=== PATIENT | female | born 1945 | race Caucasian/White ===

== ENCOUNTER 2019-07-27 10:04 | Inpatient (IN) | payer MEDICARE, OTHER ==
[~2019-07-27] VITALS: Ht 154.9 cm; Wt 47.6 kg
[2019-07-27] MEDS ORDERED: ASPI81TA85 PO (10:23)
[2019-07-27] MEDS ORDERED: CITRTAB18 PO (10:23)
[2019-07-27] MEDS ORDERED: LEVO50TA5 PO (10:23)
[2019-07-27] MEDS ORDERED: LIPI10TA PO (10:23)
[2019-07-27] MEDS ORDERED: CENT1TAB PO (10:23)
[2019-07-27] MEDS ORDERED: CELE1CAP4 PO (10:23)
[2019-07-27] MEDS ORDERED: OMEP40CA2 PO (10:23)
[2019-07-27] MEDS ORDERED: diphenhydrAMINE INJ 50MG/ML VIAL (J1200) IV STA (10:53)
[2019-07-27] MEDS ORDERED: NS 1,000 ML IV ONE (11:00)
--- NOTE | 2019-07-27 11:19 | REP ---
Clinical: Chest and abdominal pain. Technique: PA and lateral. Comparison: None. Findings: Scoliosis appreciated along with chronic-appearing interstitial changes. Small right lower lobe infiltrate/atelectasis and small pleural effusion identified. Left hemithorax appears relatively well aerated and clear. Cardiac silhouette is normal. Impression: Subtle right basilar atelectasis/infiltrate and small pleural effusion. Electronically Signed by Kyle Dash MD 07/27/2019 11:10 A
[2019-07-27 11:20] LABS: BASO % 0.2 % (0.0-1.0); EOS # 0.1 10^3/uL (0.0-0.5); EOS % 0.5 % (0.0-3.0); HEMATOCRIT 38.2 % (36.0-47.0); HEMOGLOBIN 12.9 g/dl (12.0-15.5); LYMPH # 0.7 10^3/uL (1.5-5.0); LYMPH % 4.6 % (24.0-44.0); MEAN CORPUSCULAR HEMOGLOBIN 31.3 pg (27.0-33.0); MEAN CORPUSCULAR HGB CONC 33.8 g/dl (32.0-36.5); MEAN CORPUSCULAR VOLUME 92.7 fl (80.0-96.0); MONO # 1.5 10^3/uL (0.0-0.8); MONO % 9.6 % (0.0-5.0); NEUTROPHILS # 13.5 10^3/uL (1.5-8.5); NEUTROPHILS % 84.7 % (36.0-66.0); PLATELET COUNT, AUTOMATED 208 10^3/uL (150-450); RED BLOOD COUNT 4.12 10^6/uL (4.00-5.40)
[2019-07-27 11:47] LABS: ALBUMIN 3.7 GM/DL (3.2-5.2); ALT/SGPT 21 U/L (12-78); BILIRUBIN,DIRECT 0.2 MG/DL (0.0-0.2); BILIRUBIN,TOTAL 0.6 MG/DL (0.2-1.0); BLOOD UREA NITROGEN 14 MG/DL (7-18); CALCIUM LEVEL 9.5 MG/DL (8.8-10.2); CARBON DIOXIDE LEVEL 30 MEQ/L (21-32); CHLORIDE LEVEL 100 MEQ/L (98-107); CREATININE FOR GFR 0.93 MG/DL (0.55-1.30); GLOMERULAR FILTRATION RATE > 60.0 (>39); GLUCOSE, FASTING 106 MG/DL (70-100); LIPASE 45 U/L (73-393); SODIUM LEVEL 137 MEQ/L (136-145); TOTAL PROTEIN 7.6 GM/DL (6.4-8.2)
[2019-07-27 11:54] LABS: CK-MB VALUE MASS < 1.0 NG/ML (<3.6); CPK CREATINE PHOSPHOKINASE 76 U/L (26-192); MB/CK RELATIVE INDEX 1.32 (< OR =4); TROPONIN I < 0.02 NG/ML (< 0.10)
[2019-07-27 12:02] LABS: INFLUENZA A AMPLIFICATION NEGATIVE (NEGATIVE); INFLUENZA B AMPLIFICATION NEGATIVE (NEGATIVE)
[2019-07-27] MEDS ORDERED: FAMOTIDINE INJ 20MG/2ML VIAL (S0028) IVP ONE (12:45)
[2019-07-27] MEDS ORDERED: cefTRIAXone SOD 1 GM in D5W MINI-BAG PLUS 50 ML IV ONE (12:45)
[2019-07-27] MEDS ORDERED: methylPREDNISolone INJ 125 MG/2 ML VIAL (J2930) IV ONE (12:45)
[2019-07-27] MEDS ORDERED: AZITHROMYCIN INJ 500 MG, VIAL MATE ADAPTER 1 EACH in D5W 250 ML IV ONE (12:45)
[2019-07-27 13:22] LABS: ERYTHROCYTE SEDIMENTATION RATE 37 mm/hr (0-30)
[2019-07-27] MEDS ORDERED: NS IV ONE (13:45)
[2019-07-27] MEDS ORDERED: DILUENT IV ONE (13:45)
[2019-07-27] MEDS ORDERED: SYNT75TA PO (14:10)
--- NOTE | 2019-07-27 14:24 | ECGEPIP ---
[facility] - ED Test Date: 2019-07-27 Pat Name: JUDSON KIRKLAND Department: Room: - Gender: Female Siebel Administrator: ct : 1945 Requested By: RANGEL Hurtado PA-C Order Number: [id number] Reading MD: Nuvia Castro Measurements Intervals [place] Rate: 116 P: -61 WI: 125 QRS: 47 QRSD: 84 T: 21 QT: 297 QTc: 413 Interpretive Statements JUNCTIONAL TACHYCARDIA NONSPECIFIC ST & T-WAVE ABNORMALITY ABNORMAL RHYTHM ECG NO PRIOR ECG FOR COMPARISON DELAYED R WAVE PROGRESSION CLINICAL CORRELATION ADVISED Electronically Signed on 07-27-2019 14:24:17 EDT by Nuvia Castro
[2019-07-27] MEDS ORDERED: ACETAMINOPHEN TAB 650MG DOSE (2X325MG) PO PRN (14:30)
[2019-07-27] MEDS ORDERED: diphenhydrAMINE INJ 50MG/ML VIAL (J1200) IV PRN (14:30)
[2019-07-27 15:13] LABS: MONO REFLEX EBV VCA IgM NEGATIVE (NEGATIVE)
--- NOTE | 2019-07-27 15:18 | HPEPDOC ---
General Date of Admission Jul 27, 2019 at 14:29 Date of Service: Jul 27, 2019 Chief Complaint The patient is a 73-year-old female Who presented to the emergency room with complaints of cough and weakness History of Present Illness Patient is a 73-year-old female with a PMHx of Tachyarrhythmia (Not a. fib, Not on anticoagulation), DLP, Hypothyroidism, Arthritis and GERD who presented to the emergency room after experiencing 5 days of chest congestion. Patient had reported that she has been experiencing cough without any production of sputum. She reports that this has been progressive and today she experience weakness that prompted her to go in for evaluation at the urgent care center. Upon evaluation, patient was referred to emergency room for further evaluation. . She was noted to have a fever at the urgent care center. However, she is unsure what the number was. Patient does report chills currently. Patient denies chest pain or shortness of breath. She does report palpitations but reports that this is a common symptom that she expenses regularly given her past medical history. Patient reports nausea without vomiting. Denies abdominal pain, constipation, diarrhea, urinary discomfort or urinary frequency. Patient noted that yesterday evening she began to develop a rash. Patient describes the rash as bright red, involving her chest, abdomen, groin and small portions of her left and right sides. Patient reports mild itchiness. Denies any blisters. Denies any prior rashes in the past. Patient reports that she had taken Mucinex, Metamucil, and Robitussin. Recently, however , these are not new medications for her. Of note, patient has reported that she has changed the detergent she uses one week ago; she is change from a Tide sensitive detergent to Tide original formula. Patient reports her appetite is poor but is unsure of any weight change. Home Medications Scheduled Aspirin (Aspir 81) 81 Mg Tablet.dr, 81 MG PO DAILY, (Reported) Atorvastatin Calcium (Lipitor) 10 Mg Tablet, 10 MG PO QHS, (Reported) Calcium Citrate/Vitamin D3 (Citracal + D Maximum Caplet) 1 Each Tablet, 1 TAB PO BID, (Reported) Celecoxib (Celebrex) 200 Mg Capsule, 200 MG PO DAILY, (Reported) Levothyroxine Sodium (Synthroid) 75 Mcg Tablet, 75 MCG PO DAILY, (Reported) Multivit-Min/FA/Lycopen/Lutein (Centrum Silver Tablet) 1 Each Tablet, 1 TAB PO DAILY, (Reported) Omeprazole (Omeprazole) 40 Mg Capsule.dr, 40 MG PO DAILY, (Reported) Allergies Coded Allergies: No Known Allergies (Unverified , 07/27/19) Past Medical History Medical History Tachyarrhythmia (Not a. fib, Not on anticoagulation), DLP, Hypothyroidism, Arthritis and GERD Surgical History Left arm fracture status post ORIF Right knee meniscus repair Cardiac catheterization 2012 without any stent placement Family History - Mother with a history of abdominal aortic aneurysm rupture - Father with history of diabetes mellitus Social History - Denies the use of tobacco or illicit drugs; social alcohol use - Denies recent travel or sick contacts - Lives with in [place]; has come down to this area on May 12; plan to depart back to [place] on August 03 - Occupation; retired as a secretary receptionist for the [employer] Review of Systems Other systems 10 point review of systems complete, all negative otherwise stated in HPI Vital Signs - Vitals: BP 127/56, HR 109, RR 18, Sat 96%RA, Temp 98.4F - General: Lying in bed, No acute distress, Speaking in full sentences, AAOx3 - HEENT: NC, AT, PERRLA, EOMI - CVS: Tachycardia, +S1S2 - Lungs: Fair air entry bilaterally, No appreciable wheezing / rales / rhonchi - Abdomen: Soft, Non-distended, Non-tender - Extremities: No lower extremity edema, No calf tenderness - Neuro: No focal motor or sensory deficit - Skin: Diffuse, confluent macular erythematous rash around abdomen, groin and left and right flanks, no blisters, negative Nikolsky sign, no mucous membrane involvement, +Blanching Laboratory Data Labs 24H Laboratory Tests 2 07/27/19 11:06: Immature Granulocyte % (Auto) 0.4, White Blood Count 16.0H, Red Blood Count 4.12, Hemoglobin 12.9, Hematocrit 38.2, Mean Corpuscular Volume 92.7, Mean Corpuscular Hemoglobin 31.3, Mean Corpuscular Hemoglobin Concent 33.8, Red Cell Distribution Width 13.2, Platelet Count 208, Neutrophils (%) (Auto) 84.7H, Ly mphocytes (%) (Auto) 4.6L, Monocytes (%) (Auto) 9.6H, Eosinophils (%) (Auto) 0.5, Basophils (%) (Auto) 0.2, Neutrophils # (Auto) 13.5H, Lymphocytes # (Auto) 0.7L, Monocytes # (Auto) 1.5H, Eosinophils # (Auto) 0.1, Basophils # (Auto) 0.0, Nucleated Red Blood Cells % (auto) 0.0, Erythrocyte Sedimentation Rate 37H, Urine Color JAIDA, Urine Appearance CLEAR, Urine pH 6.0, Urine Specific [place] 1.023, Urine Protein 1+H, Urine Glucose (UA) NEGATIVE, Urine Ketones NEGATIVE, Urine Blood 2+H, Urine Nitrite NEGATIVE, Urine Bilirubin NEGATIVE, Urine Urobilinogen 4.0H, Urine Leukocyte Esterase 2+H, Urine WBC (Auto) 27H, Urine RBC (Auto) 89H, Urine Hyaline Casts (Auto) 0, Urine Bacteria (Auto) NEGATIVE, Urine Squamous Epithelial Cells 1, Urine Transitional Epithelial Cells 3, Urine Mucus (Auto) SMALL, Urine Sperm (Auto) , Anion Gap 7L, Glomerular Filtration Rate > 60.0, Calcium Level 9.5, Aspartate Amino Transf (AST/SGOT) 19, Alanine Aminotransferase (ALT/SGPT) 21, Alkaline Phosphatase 82, Total Bilirubin 0.6, Direct Bilirubin 0.2, Total Creatine Kinase 76, Creatine Kinase MB < 1.0, Creatine Kinase MB Relative Index 1.32, Troponin I < 0.02, C-Reactive Protein, Quantitative 18.20H, Total Protein 7.6, Albumin 3.7, Albumin/Globulin Ratio 0.95L, Lipase 45L, Monoscreen NEGATIVE 07/27/19 11:20: Influenza Type A (RT-PCR) NEGATIVE, Influenza Type B (RT-PCR) NEGATIVE 07/27/19 13:16: Lactic Acid Level 1.0 CBC/BMP Laboratory Tests 07/27/19 11:06 Red Blood Count 4.12, Mean Corpuscular Volume 92.7, Mean Corpuscular Hemoglobin 31.3, Mean Corpuscular Hemoglobin Concent 33.8, Red Cell Distribution Width 13.2, Neutrophils (%) (Auto) 84.7 H, Lymphocytes (%) (Auto) 4.6 L, Monocytes (%) (Auto) 9.6 H, Eosinophils (%) (Auto) 0.5, Basophils (%) (Auto) 0.2, Neutrophils # (Auto) 13.5 H, Lymphocytes # (Auto) 0.7 L, Monocytes # (Auto) 1.5 H, Eosin ophils # (Auto) 0.1, Basophils # (Auto) 0.0 Microbiology Microbiology 07/27/19 Blood Culture, Received Pending 07/27/19 Group A Streptococcus Screen (ARIEL), Received Pending 07/27/19 Urine Culture, Received Pending Plan / VTE VTE Prophylaxis Ordered?: Yes Plan Plan Cough / Congestion - likely 2/2 pneumonia - coverage for MRSA pneumonia and atypical pneumonia - Presented to the emergency room after experiencing 5 days of chest congestion - Patient reports a nonproductive cough - Leukocytosis with neutrophil predominance - CXR 07/27: Subtle right basilar atelectasis/infiltrate and small pleural effusion. - Blood cultures pending - Will get respiratory panel, sputum cultures, Legionella and strep pneumonia urine antigen - Patient has received ceftriaxone and azithromycin emergency room - Will continue with Ceftaroline and azithromycin (MRSA Coverage and Atypical coverage) Diffuse, confluent, macular, erythematous rash - possibly 2/2 underlying infection (bacterial, viral), possibly 2/2 autoimmune etiology, possibly 2/2 allergic etiology - Patient is reported that the rash as started yesterday evening - Patient denies any new medications; but does report using new detergents - Elevation of CRP - Will check Legionella antigen, respiratory panel, autoimmune workup - Patient has received Solu-Medrol, Benadryl, and famotidine in the ER - Will c/w Benadryl for now - Will trend CRP Tachyarrhythmia - Patient has reported that she was informed by her wind turbine electrical engineer that this was strictly not A. fib - EKG has been reviewed and reveals sinus tachycardia - Troponin first set is negative - Will start Telemetry monitoring - Will continue with IV fluid hydration DLP - c/w Atorvastatin Hypothyroidism - c/w Levothyroxine Arthritis - c/w Tylenol PRN GERD - c/w Omeprazole DVT prophylaxis - Will start LUCA Severino MD Jul 27, 2019 15:18
[2019-07-27] MEDS: NS 1,000 ML IV SCH (17:43)
[2019-07-27 18:37] VITALS: BP 109/62
[2019-07-27 20:00] VITALS: BP 104/58
[2019-07-27] MEDS: CALCIUM/VITAMIN D 500 MG TAB PO SCH (20:53)
[2019-07-27] MEDS ORDERED: CEFTAROLINE FOSAMIL 400 MG in D5W MINI-BAG PLUS 50 ML IV SCH (21:00)
[2019-07-27] MEDS: ATORVASTATIN 10 MG TAB PO SCH (21:01)
[2019-07-27 23:59] VITALS: BP 106/55
[2019-07-28 04:00] VITALS: BP 117/59
[2019-07-28] MEDS: LEVOTHYROXINE 75MCG TABLET (0.075MG) PO SCH (06:07)
[2019-07-28] MEDS: NS 1,000 ML IV SCH (06:07)
[2019-07-28 06:11] LABS: BASO % 0.1 % (0.0-1.0); HEMATOCRIT 33.5 % (36.0-47.0); LYMPH # 0.5 10^3/uL (1.5-5.0); LYMPH % 3.4 % (24.0-44.0); MEAN CORPUSCULAR HEMOGLOBIN 30.7 pg (27.0-33.0); MEAN CORPUSCULAR HGB CONC 32.8 g/dl (32.0-36.5); MEAN CORPUSCULAR VOLUME 93.6 fl (80.0-96.0); MONO # 0.6 10^3/uL (0.0-0.8); MONO % 3.9 % (0.0-5.0); NEUTROPHILS # 13.4 10^3/uL (1.5-8.5); NEUTROPHILS % 92.1 % (36.0-66.0); PLATELET COUNT, AUTOMATED 199 10^3/uL (150-450); RED BLOOD COUNT 3.58 10^6/uL (4.00-5.40); WHITE BLOOD COUNT 14.6 10^3/uL (4.0-10.0)
[2019-07-28 06:41] LABS: BLOOD UREA NITROGEN 15 MG/DL (7-18); CALCIUM LEVEL 8.3 MG/DL (8.8-10.2); CARBON DIOXIDE LEVEL 27 MEQ/L (21-32); CHLORIDE LEVEL 106 MEQ/L (98-107); CREATININE FOR GFR 0.85 MG/DL (0.55-1.30); GLOMERULAR FILTRATION RATE > 60.0 (>39); GLUCOSE, FASTING 139 MG/DL (70-100); MAGNESIUM LEVEL 2.1 MG/DL (1.8-2.4); POTASSIUM SERUM 3.8 MEQ/L (3.5-5.1); SODIUM LEVEL 140 MEQ/L (136-145)
[2019-07-28 08:00] VITALS: BP 113/56
[2019-07-28] MEDS: OMEPRAZOLE 20 MG CAP PO SCH (08:09)
[2019-07-28] MEDS: MULTIVITAMINS/MINERALS THERAP 1 TAB PO SCH (08:09)
[2019-07-28] MEDS: CALCIUM/VITAMIN D 500 MG TAB PO SCH ×3 (08:09→20:16)
[2019-07-28] MEDS: ASPIRIN 81 MG ENTERIC TAB PO SCH (08:10)
[2019-07-28] MEDS: ENOXAPARIN 40 MG/0.4 ML SYRINGE (J1650) SC SCH (08:10)
[2019-07-28] MEDS: cefTRIAXone SOD 1 GM in D5W MINI-BAG PLUS 50 ML IV SCH (08:10)
[2019-07-28] MEDS: ERYTHROMYCIN 2 % GEL 30GM TOP SCH ×4 (09:00→20:16)
[2019-07-28] MEDS ORDERED: ERYTHROMYCIN 2 % GEL 30GM TOP SCH (09:00)
--- NOTE | 2019-07-28 09:00 | IPNPDOC ---
Text Note Date of Service The patient was seen on 07/28/19. NOTE HPI: Pt is a 73 yo female with PMH of tachyarrhythmia(not afib), dyslipidemia, hypothyroidism, and GERD presented to the [facility] after 5 days of chest congestion. Pt reported chest congestion/cough since 07/23/19 and on 07/25/19 erythematous rash started appearing in trunk; pt went to urgent care advised to come to ER. Patient had reported that she had some robutussin prior to the rash started but she believed she had it earlier sometime in her life; pt said she started on Mucinex which was new but it was after her rash started. Denies any pruritus/tenderness but stated that rash is warm and has been spreading. Pt also reported feeling generalized warm/fever. Denies any chest pain, palpitation, dyspnea, wheezing, abd pain, constipation, diarrhea, or hematochezia. ROS: General: Pos for feeling warm. Denies lightheadedness/dizziness Heart:Denies any chest pain or palpitations Lung: Minimally productive cough, no dyspnea, no wheezing Abd: Denies any abd pain, constipation, diarrhea, or blood in stool Integumentary: Pos for warm erythematous rash on b/l trunk including flank and groins. Denies pain or pruritus Physical exam: General: A&OX3, not in acute distress, comfortable pleasant and cooperative HEENT: Head normocephalic, atraumatic, no conjunctiva injections or scleral icterus CVS: RRR, no murmur, normal S1 and S2 Lungs:CTA, no rales, wheezing, rhonchi, no obvious accessory muscle use. Abdomen: Soft. distended and nontender. Bowel sound aus in all 4 quadrants. No guarding. Extremities: Radial pulse equal b/l. No lower extremity edema, no calf tendernes s b/l Neuro: No focal motor or sensory deficit. Cognitive fxn and memory intact Skin: Diffuse, confluent erythematous macules/patches around bilateral abdomen, groin and left and right flanks with clear borders. Warm to touch. No scaling/tenderness/blisters/drainage/opening 1. Community Acquired pneumonia - Presented to the emergency room after experiencing 5 days of chest congestion - Initially reported nonproductive cough; now minimal sputum production - Leukocytosis with neutrophil predominance - CXR 07/27: Subtle right basilar atelectasis/infiltrate and small pleural effusion. - Blood cx pending - Resp neg; sputum cx Legionella and strep pneumonia urine antigen pending - s/p ceftriaxone and azithromycin from ER - MRSA r/o thus change Ceftaroline to Ceftriaxone. Cont azithromycin 2. Diffuse, confluent, macules/patches erythematous rash - possibly 2/2 erythrasma vs drug reaction vs underlying infection (bacterial, viral) vs autoimmune etiology vs other allergic etiology - started 1 day prior to admission; initially in abd area gradually spreading to b/l flank, under breasts, and intertrigo area. Reported warmth w/o pruritus/tenderness - Patient denies any new medications prior to onset of rash except for robitussion which she has had prior as well as Mucinex; but does report using new detergents - Elevation of CRP down-trending - Resp panel neg. Legionella antigen and autoimmune pending - Patient has received Solu-Medrol, Benadryl, and famotidine in the ER - Will c/w Benadryl PRN for now - Will trend CRP 3. PMH of tachyarrhythmia - Patient had reported that she was informed by her saw sharpener that this was strictly not A. fib - EKG has been reviewed and reveals sinus tachycardia; RRR at time of exam, d/c IV fluid - Troponin first set is negative; pt denies cardiac symptoms - Cont tele monitoring 4. DLP - c/w home med Atorvastatin 5. Hypothyroidism - c/w home med Levothyroxine 6. Arthritis - c/w Tylenol PRN 7. GERD - c/w home med Omeprazole DVT prophylaxis - Cont Lovenox VS,Fishbone, I+O VS, Fishbone, I+O Laboratory Tests 07/27/19 11:06 Red Blood Count 4.12, Mean Corpuscular Volume 92.7, Mean Corpuscular Hemoglobin 31.3, Mean Corpuscular Hemoglobin Concent 33.8, Red Cell Distribution Width 13.2, Neutrophils (%) (Auto) 84.7 H, Lymphocytes (%) (Auto) 4.6 L, Monocytes (%) (Auto) 9.6 H, Eosinophils (%) (Auto) 0.5, Basophils (%) (Auto) 0.2, Neutrophils # (Auto) 13.5 H, Lymphocytes # (Auto) 0.7 L, Monocytes # (Auto) 1.5 H, Eosinophils # (Auto) 0.1, Basophils # (Auto) 0.0 07/28/19 05:43 Red Blood Count 3.58 L, Mean Corpuscular Volume 93.6, Mean Corpuscular Hemoglobin 30.7, Mean Corpuscular Hemoglobin Concent 32.8, Red Cell Distribution Width 13.3, Neutrophils (%) (Auto) 92.1 H, Lymphocytes (%) (Auto) 3.4 L, Monocytes (%) (Auto) 3.9, Eosinophils (%) (Auto) 0.0, Basophils (%) (Auto) 0.1, Neutrophils # (Auto) 13.4 H, Lymphocytes # (Auto) 0.5 L, Monocytes # (Auto) 0.6, Eosinophils # (Auto) 0.0, Basophils # (Auto) 0.0, Calcium Level 8.3 L Vital Signs Date Time Temp Pulse Resp B/P (MAP) Pulse Ox O2 Delivery O2 Flow Rate FiO2 07/28/19 08:00 99.2 81 20 113/56 (75) 98 07/27/19 18:00 Room Air I&O- Last 24 Hours up to 6 AM 07/28/19 06:00 Intake Total 1690 ml Output Total 0 ml Balance 1690 ml GME ATTESTATION GME ATTESTATION My faculty preceptor for this patient encounter was physically present during the encounter and was fully available. All aspects of the patient interview, examination, medical decision making process, and medical care plan development were reviewed and approved by the faculty preceptor. The faculty preceptor is aware and concurs with the plan as stated in the body of this note and will attest to such by his/her cosignature. ATTENDING NOTE I, Jerrod Robledo, have independently examined this patient and performed my own physical exam, as well as reviewed the documentation and edited where necessary. I have discussed in detail with the resident / student the findings and plan of treatment as documented by the resident / student and edited their note. I agree with their findings and treatment plan and have edited their documentation. I will continue to follow the patient during this hospital stay. JOSE MELTON DO Jul 28, 2019 09:00 JERROD ROBLEDO MD Jul 28, 2019 14:32
[2019-07-28] MEDS ORDERED: SLF 3 ML SYR IV PRN (10:15)
[2019-07-28] MEDS: SLF 3 ML SYR IV SCH ×2 (11:05→20:17)
[2019-07-28 12:00] VITALS: BP 118/60
[2019-07-28 16:00] VITALS: BP 131/63
[2019-07-28] MEDS ORDERED: AZITHROMYCIN INJ 500 MG, VIAL MATE ADAPTER 1 EACH in D5W 250 ML IV SCH (18:00)
[2019-07-28 20:00] VITALS: BP 111/57
[2019-07-28] MEDS: ATORVASTATIN 10 MG TAB PO SCH (20:15)
[2019-07-28] MEDS ORDERED: CLINDAMYCIN TOP 1% SOLN 60 ML BTL TOP SCH (21:00)
[2019-07-28 23:59] VITALS: BP 118/56
[2019-07-29 04:00] VITALS: BP 128/60
[2019-07-29] MEDS: SLF 3 ML SYR IV SCH ×2 (05:36→11:44)
[2019-07-29] MEDS: LEVOTHYROXINE 75MCG TABLET (0.075MG) PO SCH (05:36)
[2019-07-29 05:42] LABS: BASO % 0.1 % (0.0-1.0); EOS # 0.1 10^3/uL (0.0-0.5); EOS % 0.7 % (0.0-3.0); HEMATOCRIT 30.7 % (36.0-47.0); HEMOGLOBIN 10.5 g/dl (12.0-15.5); LYMPH % 6.8 % (24.0-44.0); MEAN CORPUSCULAR HGB CONC 34.2 g/dl (32.0-36.5); MEAN CORPUSCULAR VOLUME 93.6 fl (80.0-96.0); MONO # 1.3 10^3/uL (0.0-0.8); MONO % 8.5 % (0.0-5.0); NEUTROPHILS # 12.2 10^3/uL (1.5-8.5); NEUTROPHILS % 83.1 % (36.0-66.0); PLATELET COUNT, AUTOMATED 204 10^3/uL (150-450); RED BLOOD COUNT 3.28 10^6/uL (4.00-5.40); WHITE BLOOD COUNT 14.7 10^3/uL (4.0-10.0)
[2019-07-29 06:04] LABS: BLOOD UREA NITROGEN 19 MG/DL (7-18); C REACTIVE PROTEIN QUANTITATIV 8.25 MG/DL (0.00-0.30); CALCIUM LEVEL 8.3 MG/DL (8.8-10.2); CARBON DIOXIDE LEVEL 29 MEQ/L (21-32); CHLORIDE LEVEL 107 MEQ/L (98-107); CREATININE FOR GFR 0.77 MG/DL (0.55-1.30); GLOMERULAR FILTRATION RATE > 60.0 (>39); GLUCOSE, FASTING 97 MG/DL (70-100); MAGNESIUM LEVEL 1.9 MG/DL (1.8-2.4); POTASSIUM SERUM 3.9 MEQ/L (3.5-5.1); SODIUM LEVEL 140 MEQ/L (136-145)
[2019-07-29 08:00] VITALS: BP 115/66
[2019-07-29] MEDS ORDERED: BENZONATATE 100 MG CAP PO PRN (08:00)
[2019-07-29] MEDS: OMEPRAZOLE 20 MG CAP PO SCH (08:38)
[2019-07-29] MEDS: cefTRIAXone SOD 1 GM in D5W MINI-BAG PLUS 50 ML IV SCH (08:39)
[2019-07-29] MEDS: ENOXAPARIN 40 MG/0.4 ML SYRINGE (J1650) SC SCH (08:39)
[2019-07-29] MEDS: ASPIRIN 81 MG ENTERIC TAB PO SCH (08:39)
[2019-07-29] MEDS: MULTIVITAMINS/MINERALS THERAP 1 TAB PO SCH (08:39)
[2019-07-29] MEDS: ERYTHROMYCIN 2 % GEL 30GM TOP SCH (08:40)
[2019-07-29] MEDS: CALCIUM/VITAMIN D 500 MG TAB PO SCH (08:40)
[2019-07-29] MEDS ORDERED: PREVNAR 13 VACCINE SYRINGE (CPT CODE:90670) IM ONE (09:00)
--- NOTE | 2019-07-29 09:49 | IPNPDOC ---
Text Note Date of Service The patient was seen on 07/29/19. NOTE HPI: Pt is a 73 yo female with PMH of tachyarrhythmia(not afib), dyslipidemia, hypothyroidism, and GERD presented to the [facility] after 5 days of chest congestion. Pt reported chest congestion/cough since 07/23/19 and on 07/25/19 erythematous rash started appearing in trunk; pt went to urgent care advised to come to ER. Patient had reported that she had some robutussin prior to the rash started but she believed she had it earlier sometime in her life; pt said she started on Mucinex which was new but it was after her rash started. Pt reported that she continues to have significant amount of cough. Reported the erythematous rash had stopped expanding but remains warm. Pt thinks the erythema intensity had improved. Denies any dysuria, urgency, or frequency. Continue to deny any pruritus/tenderness. Pt denies any fever, chills, chest pain, palpitation, dyspnea, wheezing, abd pain, constipation, diarrhea, or hematochezia. ROS: General: Denies fever, chills, lightheadedness/dizziness Heart:Denies any chest pain or palpitations Lung: productive cough, no dyspnea, no wheezing Abd: Denies any abd pain, constipation, diarrhea, or blood in stool Integumentary: Pos for warm erythematous rash on b/l trunk including flank and groins. Denies pain or pruritus Musculoskeletal: denies any joint pain : Denies dysuria, frequency, or urgency Physical exam: General: A&OX3, not in acute distress, comfortable pleasant and cooperative HEENT: Head normocephalic, atraumatic, no conjunctiva injections or scleral icterus CVS: RRR, no murmur, normal S1 and S2 Lungs:CTA, no rales, wheezing, rhonchi, no obvious accessory muscle use. Abdomen: Soft. distended and nontender. Bowel sound aus in all 4 quadrants. No guarding. Extremities: Radial pulse equal b/l. No lower extremity edema, no calf tenderness b/l Neuro: No focal motor or sensory deficit. Cognitive fxn and memory intact Skin: Diffuse, confluent erythematous macules/patches around bilateral abdomen, groin and left and right flanks with clear borders; borders/size unchanged from yesterday. erythema intensity and warmth improved compared to yesterday. No red fluoresence under wood's lamp. No scaling/tenderness/blisters/drainage/opening 1. Community Acquired pneumonia - Presented to the emergency room after experiencing 5 days of chest congestion - Productive cough. - Leukocytosis with neutrophil predominance - CXR 07/27: Subtle right basilar atelectasis/infiltrate and small pleural effusion. - Blood cx neg. - Resp neg; sputum gram stain pos for mod gram neg rods and gram pos cocci in clusters and chains; Legionella and strep pneumonia urine antigen pending - s/p ceftriaxone and azithromycin from ER - ON empiric abx for CAP. MRSA r/o thus change Ceftaroline to Ceftriaxone. Cont Azithromycin - tessalon garth ordered 2. Diffuse, confluent, macules/patches erythematous rash - possibly 2/2 drug reaction vs underlying infection (bacterial, viral) vs autoimmune etiology vs other allergic etiology - started 1 day prior to admission; initially in abd area gradually spreading to b/l flank, under breasts, and intertrigo area. Reported warmth w/o pruritus/tenderness - Patient denies any new medications prior to onset of rash except for robitussion which she has had prior as well as Mucinex; but does report using new detergents - Elevation of CRP down-trending - Resp panel neg. Legionella antigen and autoimmune pending - Patient has received Solu-Medrol, Benadryl, and famotidine in the ER - Will c/w Benadryl PRN for now - Wood lamp showed no red fluoresence 3. Asymptomatic Bacteriuria -Urine cx pos for E-coli -pt denies any dysuria, frequ, or urgency -Pt on on empiric abx tx for community acquired pna 3. PMH of tachyarrhythmia - Patient had reported that she was informed by her health services rn that this was strictly not A. fib - EKG has been reviewed and reveals sinus tachycardia; RRR at time of exam, d/c IV fluid - Troponin first set is negative; pt denies cardiac symptoms - Cont tele monitoring 4. DLP - c/w home med Atorvastatin 5. Hypothyroidism - c/w home med Levothyroxine 6. Arthritis - c/w Tylenol PRN 7. GERD - c/w home med Omeprazole DVT prophylaxis - Cont Lovenox VS,Fishbone, I+O VS, Fishbone, I+O Laboratory Tests 07/29/19 05:15 Red Blood Count 3.28 L, Mean Corpuscular Volume 93.6, Mean Corpuscular Hemoglobin 32.0, Mean Corpuscular Hemoglobin Concent 34.2, Red Cell Distribution Width 13.4, Neutrophils (%) (Auto) 83.1 H, Lymphocytes (%) (Auto) 6.8 L, Monocytes (%) (Auto) 8.5 H, Eosinophils (%) (Auto) 0.7, Basophils (%) (Auto) 0.1, Neutrophils # (Auto) 12.2 H, Lymphocytes # (Auto) 1.0 L, Monocytes # (Auto) 1.3 H, Eosinophils # (Auto) 0.1, Basophils # (Auto) 0.0, Calcium Level 8.3 L Vital Signs Date Time Temp Pulse Resp B/P (MAP) Pulse Ox O2 Delivery O2 Flow Rate FiO2 07/29/19 08:00 98.9 84 18 115/66 (82) 94 07/27/19 18:00 Room Air I&O- Last 24 Hours up to 6 AM 07/29/19 05:59 Intake Total 1400 ml Output Total 2100 ml Balance -700 ml JOSE MELTON DO Jul 29, 2019 09:49
[2019-07-29] MEDS ORDERED: LEVA1TAB2 PO (10:57)
--- NOTE | 2019-07-29 11:57 | DS.PDOC ---
Discharge Summary General Date of Admission Jul 27, 2019 at 14:29 Date of Discharge 07/29/19 Discharge Summary PROCEDURES PERFORMED DURING STAY: [None]. ADMITTING DIAGNOSES: 1. Cough / Congestion - likely 2/2 pneumonia - coverage for MRSA pneumonia and atypical pneumonia 2. Diffuse, confluent, macular, erythematous rash - possibly 2/2 underlying infection (bacterial, viral), possibly 2/2 autoimmune etiology, possibly 2/2 allergic etiology 3. Tachyarrhythmia 4. DLP 5. Hypothyroidism 6. Arthritis 7. GERD DISCHARGE DIAGNOSES: 1. Community Acquired pneumonia 2. Diffuse, confluent, macules/patches erythematous rash - possibly 2/2 drug reaction vs underlying infection (bacterial, viral) vs autoimmune etiology vs other allergic etiology 3. Asymptomatic Bacteriuria 4. PMH of tachyarrhythmia 5. DLP 6. Hypothyroidism 7. Arthritis 8. GERD COMPLICATIONS/CHIEF COMPLAINT: Pneumonia. HISTORY OF PRESENT ILLNESS: Pt is a 73 yo female with PMH of tachyarrhythmia(not afib), dyslipidemia, hypothyroidism, and GERD presented to the [facility] after 5 days of chest congestion. Pt reported chest congestion/cough since 07/23/19 and on 07/25/19 erythematous rash started appearing in trunk; pt went to urgent care advised to come to ER. Patient had reported that she had some robutussin prior to the rash started but she believed she had it earlier sometime in her life; pt said she started on Mucinex which was new but it was after her rash started. Denies any pruritus/tenderness but stated that rash is warm and has been spreading. Pt also reported feeling generalized warm/fever. Denies any chest pain, palpitation, dyspnea, wheezing, abd pain, constipation, diarrhea, or hematochezia. HOSPITAL COURSE: Pt was noted to have subtle right basilar atelectasis/infiltrate and small pleural effusion on CXR. She received IV Ceftaroline and Azithromycin and was subsequently changed to IV Ceftriaxone and Azithromycin after MRSA screen neg. Pt was started on a trial of erythromycin ointment; it was noted that the erythematous rash on the trunk improves however it is thought that is likely it's due to drug allergy/eruption. Pt's sputum cx was noted to have gram neg [place] and gram pos cocci; she had remained afebrile during hospitalization. She was determined to be stable to be discharge home with oral levaquin. DISCHARGE MEDICATIONS: Please see below. ALLERGIES: Please see below. PHYSICAL EXAMINATION ON DISCHARGE: VITAL SIGNS: Please see below. GENERAL: A&OX3, not in acute distress HEENT: Head normocephalic, atraumatic NECK: supple CARDIOVASCULAR EXAMINATION: RRR, no murmur, normal S1 and S2 RESPIRATORY EXAMINATION: CTA b/l, no rales wheezing and rhonchi ABDOMINAL EXAMINATION: soft, no guarding or distention, no tenderness in all quad. EXTREMITIES: radial pulse equal b/l SKIN: erythematous macules and patches and trunks, b/l flanks, and b/l groins mildly erythematous(erythema color improved compared to yesterday) without change in size NEUROLOGICAL EXAMINATION: memory and cognitive fxn intact PSYCHIATRIC EXAMINATION: Mood stable and appropriate to situation LABORATORY DATA: Please see below. IMAGING: CXR shows subtle right basilar atelectasis/infiltrate as well as small pleural effusion. PROGNOSIS: Good to fair ACTIVITY: [As tolerated]. DIET: Regular diet DISCHARGE PLAN AND INSTRUCTIONS: 1. Finish oral levaquin 500mg QD for 7 days 2. Follow up with provider within 7 days ITEMS TO FOLLOWUP ON ON OUTPATIENT: 1. Community acquired pneumonia 2. Erythematous rash 3. Asymptomatic bacteruria DISCHARGE CONDITION: [Stable]. TIME SPENT ON DISCHARGE: Greater than 30 minutes. Vital Signs/I&Os Vital Signs Date Time Temp Pulse Resp B/P (MAP) Pulse Ox O2 Delivery O2 Flow Rate FiO2 07/29/19 08:00 98.9 84 18 115/66 (82) 94 07/27/19 18:00 Room Air I&O- Last 24 Hours up to 6 AM 07/29/19 06:00 Intake Total 1650 ml Output Total 2400 ml Balance -750 ml Laboratory Data Labs 24H Laboratory Tests 2 07/29/19 05:15: Immature Granulocyte % (Auto) 0.8, White Blood Count 14.7H, Red Blood Count 3.28L, Hemoglobin 10.5L, Hematocrit 30.7L, Mean Corpuscular Volume 93.6, Mean Corpuscular Hemoglobin 32.0, Mean Corpuscular Hemoglobin Concent 34.2, Red Cell Distribution Width 13.4, Platelet Count 204, Neutrophils (%) (Auto) 83.1H, Lymphocytes (%) (Auto) 6.8L, Monocytes (%) (Auto) 8.5H, Eosinophils (%) (Auto) 0.7, Basophils (%) (Auto) 0.1, Neutrophils # (Auto) 12.2H, Lymphocytes # (Auto) 1.0L, Monocytes # (Auto) 1.3H, Eosinophils # (Auto) 0.1, Basophils # (Auto) 0.0, Nucleated Red Blood Cells % (auto) 0.0, Anion Gap 4L, Glomerular Filtration Rate > 60.0, Blood Urea Nitrogen 19H, Creatinine 0.77, Sodium Level 140, Potassium Level 3.9, Chloride Level 107, Carbon Dioxide Level 29, Calcium Level 8.3L, Magnesium Level 1.9, C-Reactive Protein, Quantitative 8.25H CBC/BMP Laboratory Tests 07/29/19 05:15 Red Blood Count 3.28 L, Mean Corpuscular Volume 93.6, Mean Corpuscular Hemoglobin 32.0, Mean Corpuscular Hemoglobin Concent 34.2, Red Cell Distribution Width 13.4, Neutrophils (%) (Auto) 83.1 H, Lymphocytes (%) (Auto) 6.8 L, Monocytes (%) (Auto) 8.5 H, Eosinophils (%) (Auto) 0.7, Basophils (%) (Auto) 0.1, Neutrophils # (Auto) 12.2 H, Lymphocytes # (Auto) 1.0 L, Monocytes # (Auto) 1.3 H, Eosinophils # (Auto) 0.1, Basophils # (Auto) 0.0, Calcium Level 8.3 L Microbiology Microbiology 07/27/19 Blood Culture - Preliminary, Resulted No growth after 24 hours . All specim... 07/27/19 Blood Culture - Preliminary, Resulted No growth after 24 hours . All specim... 07/27/19 Gram Stain - Final, Resulted 07/27/19 Sputum Culture, Resulted Pending 07/27/19 Respiratory Virus Panel (PCR) (ARIEL) - Final, Complete 07/27/19 Group A Streptococcus Screen (ARIEL) - Final, Complete 07/27/19 Urine Culture - Final, Complete Escherichia Coli Discharge Medications Scheduled Aspirin (Aspir 81) 81 Mg Tablet.dr, 81 MG PO DAILY, (Reported) Atorvastatin Calcium (Lipitor) 10 Mg Tablet, 10 MG PO QHS, (Reported) Calcium Citrate/Vitamin D3 (Citracal + D Maximum Caplet) 1 Each Tablet, 1 TAB PO BID, (Reported) Celecoxib (Celebrex) 200 Mg Capsule, 200 MG PO DAILY, (Reported) Levofloxacin (Levaquin) 500 Mg Tablet, 500 MG PO DAILY Levothyroxine Sodium (Synthroid) 75 Mcg Tablet, 75 MCG PO DAILY, (Reported) Multivit-Min/FA/Lycopen/Lutein (Centrum Silver Tablet) 1 Each Tablet, 1 TAB PO DAILY, (Reported) Omeprazole (Omeprazole) 40 Mg Capsule.dr, 40 MG PO DAILY, (Reported) Allergies Coded Allergies: No Known Allergies (Unverified , 07/27/19) JOSE MELTON DO Jul 29, 2019 11:56
[2019-07-29] MEDS ORDERED: AZITHROMYCIN INJ 500 MG, VIAL MATE ADAPTER 1 EACH in D5W 250 ML IV SCH (18:00)
[2019-07-31 00:06] LABS: ANA (HEP2) Negative (.); ANTINUCLEAR ANTIBODIES DIRECT Negative (Negative)
[2019-08-01 00:06] LABS: BODY FLUID CULTURE Not Indicated (.); LEGIONELLA ANTIGEN URINE Negative (Negative); ORGANISM ID Not indicated. (.); SPECIMEN SOURCE Urine (.); URINE STREP PNEUMONIAE ANTIGEN Negative (Negative)
== END 2019-07-29 13:18 | disposition home or self-care (01) | DRG 195 ==
LOC: M ED 10:04 → M ED INP 14:29 → M PCU 18:25
PROVIDERS: ADMIT Internal Medicine; ATTEND Internal Medicine
DX: J18.9 Pneumonia, unspecified organism (principal); E03.9 Hypothyroidism, unspecified; K21.9 Gastro-esophageal reflux disease without esophagitis; M19.90 Unspecified osteoarthritis, unspecified site; R21 Rash and other nonspecific skin eruption; Z79.82 Long term (current) use of aspirin; Z79.899 Other long term (current) drug therapy